=== PATIENT | female | born 1935 | race Caucasian/White ===

== ENCOUNTER 2021-03-16 20:16 | Outpatient (REF) | payer MEDICARE, SELFPAY ==
[2021-03-18 15:09] LABS: COVID-19 RT-PCR UVMMC Result Positive (Negative)
== END 2021-03-16 20:17 | disposition home or self-care (01) ==
LOC: LBN 20:16
PROVIDERS: PCP Internal Medicine; Visit Provider Family Medicine
DX: R73.9 Hyperglycemia, unspecified (principal); F03.91 Unspecified dementia, unspecified severity, with behavioral disturbance; Z93.2 Ileostomy status
CPT/HCPCS: U0003